=== PATIENT | female | born 1980 | race Hispanic/Latino ===

== ENCOUNTER 2018-10-14 11:42 | Emergency (ER) | payer BC, OTHER ==
[~2018-10-14] VITALS: Ht 162.6 cm; Wt 49.0 kg
--- OUTSIDE RECORDS SUMMARY | 2018-10-14 11:44 | XMS REPORT | Encounter Summary ---
Author Organization Unknown Address [address] [place] [address] Phone [phone] Reason for Visit Medical Complaint Instructions None recorded. Discussion Note: None recorded. Patient educational handouts: No information available. Plan of Care Reminders Provider Appointments None recorded. Lab None recorded. Referral None recorded. Procedures None recorded. Surgeries None recorded. Imaging None recorded. Medications None recorded. Medications Administered None recorded. Vitals None recorded. Lab Results None recorded. Allergies Name Reaction Severity Onset Stadol Problems None recorded. Procedures None recorded. Vaccine List None recorded. Social History Smoking Status Never Smoker Past Encounters 01/28/2016 TAMIKO Covington: [address] [facility] [place] [address], Ph. History of Present Illness None recorded. Review of Systems Reported By: Patient Physical Exam None recorded.
--- OUTSIDE RECORDS SUMMARY | 2018-10-14 11:44 | XMS REPORT | Continuity of Care Document ---
Author Author [facility] Interface Address Unknown Phone Unavailable Problems Problem Status Onset Date Classification Date Reported Comments Source Streptococcal sore throat 04/05/2016 Diagnosis 04/05/2016 [facility] Acute upper respiratory infection 04/05/2016 Diagnosis 04/05/2016 [facility] Streptococcal Sore Throat Problem 04/05/2016 [facility] Acute Upper Respiratory Infection Problem 04/05/2016 [facility] Medications Medication Details Route Status Patient Instructions Ordering Provider Order Date Source Amoxicillin 875 MG Oral Tablet amoxicillin 875 mg tablet Take 1 tablet twice a day by oral route with meals for 10 days. Active [facility] Brompheniramine Maleate 0.4 MG/ML / Dextromethorphan Hydrobromide 2 MG/ML / Pseudoephedrine Hydrochloride 6 MG/ML Oral Solution [Bromfed DM] Bromfed DM 2 mg-30 mg-10 mg/5 mL syrup Take 10 mL every 6 hours by oral route as needed for cough. Active [facility] Allergies, Adverse Reactions, Alerts Substance Category Reaction Severity Reaction type Status Date Reported Comments Source Stadol Allergy to substance 01/28/2016 [facility] Immunizations Immunization Date Given Site Status Last Updated Comments Source Results Order Name Results Value Reference Range Date Interpretation Comments Source Influenza A negative 04/05/2016 [facility] Influenza B negative 04/05/2016 [facility] RESULT positive 04/05/2016 [facility] SWAB LOCATION Left and Right tonsillar pillars 04/05/2016 [facility] Vital Signs Vital Sign Value Date Comments Source Diastolic (mm Hg) 78 04/05/2016 [facility] Height 64 04/05/2016 [facility] Systolic (mm Hg) 110 04/05/2016 [facility] Weight 112 04/05/2016 [facility] Encounters Location Location Details Encounter Type Encounter Number Reason For Visit Attending Provider ADM Date DC Date Status Source [place] - [facility] - [id number] Bates, [employer]: [address] [place] [address], Ph. [phone] [id number] Renae Bates 01/28/2016 [facility] [place] [facility] - [id number] Bates, MARKET DEVELOPMENT TRAINER: [address] [place] [address], Ph. [id number] Renae Bates 01/28/2016 [facility] [place] - [facility] - [id number] Bates, MARKET DEVELOPMENT TRAINER: [address] [place] [address], Ph. [id number] Renae Bates 04/05/2016 [facility] Procedures Procedure Code Date Perfomer Comments Source
--- OUTSIDE RECORDS SUMMARY | 2018-10-14 11:44 | XMS REPORT | Encounter Summary ---
Author Organization Unknown Address [address] [place] [address] Phone [phone] Reason for Visit Medical Complaint Instructions 1. Streptococcal sore throat rapid strep group A, throat amoxicillin 875 mg tablet strep throat: care instructions 2. Acute upper respiratory infection rapid flu (A+B) Bromfed DM 2 mg-30 mg-10 mg/5 mL syrup upper respiratory infection (cold): care instructions Discussion Note: None recorded. Plan of Care Patient Instructions Please drink plenty of fluids, rest, good hand washing, cover your mouth while coughing and sneezing. Try warm salt water gargles, throat lozanges, soups ortea with honey and/or lemon juice to soothe the throat.Take ibuprofen or tylenol every 6 hours as needed for fever and aches. Try flonase nasal spray, 2sprays to each nostril once a day for nasal congestion.Change out your toothbrush tomorrow or when you start to feel better.Please read all the side effects of the medications, if you develop any side effects immediately stop the medication and please contact your PCP/UC/ER or [facility] or call 911. Follow up with PCP/UC/ER or seek care if symptomsget worseor no improvement in 3 to 4 days. Patient verbalizes understanding and agrees to the plan. Reminders Provider Appointments None recorded. Lab Rapid Flu (A+B) 04/05/2016 [facility] Rapid Strep Group a, Throat 04/05/2016 [facility] Referral None recorded. Procedures None recorded. Surgeries None recorded. Imaging None recorded. Medications Name Start Date amoxicillin 875 mg tablet Take 1 tablet twice a day by oral route with meals for 10 days. Bromfed DM 2 mg-30 mg-10 mg/5 mL syrup Take 10 mL every 6 hours by oral route as needed for cough. Medications Administered None recorded. Vitals Height Weight BMI Blood Pressure 5 ft 4 in 112 lbs 19.2 110/78 Lab Results Date Name Result Description Value Range Status Rapid Flu (A+B) Influenza a negative Influenza B negative Rapid Strep Group a, Throat Result positive Swab Location Left and Right tonsillar pillars Allergies Name Reaction Severity Onset Stadol Hallucinations Problems Name Status Onset Date Source Streptococcal Sore Throat Active Encounter Acute Upper Respiratory Infection Active Encounter Procedures None recorded. Vaccine List None recorded. Social History Smoking Status Never Smoker Past Encounters 04/05/2016 Streptococcal Sore Throat; Acute Upper Respiratory Infection Renae Bates, [facility]: [address] [place] [address], Ph. History of Present Illness Vavly-Ectvzscuve-Gxyyxig Reported By: Patient HPI: Location: head/sinuses, throat. Quality: productive cough, sore throat, nasal/sinus congestion, dry cough. Duration: 3days. Severity: moderate. Onset/Timing: sudden. Context: no sick contacts, no foreign travel, non-smoker, allergies. Modifying factors: OTC medication. Associated Symptoms: no sputum production, no shortness of breath, no wheezing, no change in number of pillows needed to sleep at night, no sweats, no significant weight gain, no significant weight loss, no morning cough, no vomiting, no diarrhea, no rash, no nausea, sore throat Notes: Pt also reports body aches and fever. Review of Systems Basic Reported By: Patient Constitutional: Constitutional: fever Eyes: Eyes: no eye complaints Ugrv-Vzae-Cifhi-Throat: Ears: no ear complaints. Nose: nose/sinus problems. Mouth/Throat: no bleeding gums, no mouth complaints, no teeth problems, sore throat Cardiovascular: Cardiovascular: no chest pain, no shortness of breath, no known heart murmur Respiratory: Respiratory: no wheezing, no shortness of breath, cough Gastrointestinal: Gastrointestinal: no abdominal pain, no vomiting / diarrhea Genitourinary: Genitourinary: no urinary complaints, no discharge Musculoskeletal: Musculoskeletal: no muscle weakness, no arthralgias/joint pain, no back pain, muscle aches Skin: Skin: no abnormal / changing mole, no jaundice, no rashes Neurologic: Neurologic: no loss of consciousness, no weakness, no numbness, no seizures, no dizziness, headache Physical Exam Adult Basic, Adult Female Complete Constitutional: General Appearance: healthy-appearing, well-nourished, well-developed. Level of Distress: NAD. Ambulation: ambulating normally Psychiatric: Mental Status: active and alert. Orientation: to time, to place, to person Eyes: Lids and Conjunctivae: non-injected, no discharge, no pallor. Pupils: PERRLA. EOM: EOMI. Lens: clear. Sclerae: non-icteric Nsv-Biic-Ybbrt-Throat: Ears: no lesions on external ear, no outer ear tenderness, EACs clear, TMs clear. Hearing: no hearing loss. Nose: no lesions on external nose, nares patent, no septal deviation, nasal passages clear, no sinus tenderness, nasal discharge--rhinorrhea, post nasal drip. Lips, Teeth, and Gums: no mouth or lip ulcers, no bleeding gums, normal dentition. Oropharynx: moist mucous membranes, erythema, exudates, tonsils enlarged 1+ Neck: Neck: supple. Lymph Nodes: no cervical LAD Lungs: Respiratory effort: no dyspnea, no tachypnea. Auscultation: breath sounds normal Cardiovascular: Heart Auscultation: RRR, no murmurs Neurologic: Gait and Station: normal gait Skin: Inspection and palpation: no rash
--- OUTSIDE RECORDS SUMMARY | 2018-10-14 11:44 | XMS REPORT | Encounter Summary ---
Author Organization Unknown Address [address] [place] [address] Phone [phone] Reason for Visit Medical Complaint Instructions None [...] Smoker Past Encounters 01/28/2016 TAMIKO Covington: [address] [facility] [place] [address], Ph. History of Present Illness None recorded. Review of Systems Reported By: Patient Physical Exam None recorded.
--- NOTE | 2018-10-14 11:50 | NUR ---
HOUSE SUP NOTIFIED OF DOPPLER NEEDED
[2018-10-14 12:25] LABS: AMPHETAMINES SCREEN,URINE NEGATIVE (NEGATIVE); BENZODIAZEPINES SCREEN,URINE NEGATIVE (NEGATIVE); PHENCYCLIDINE SCREEN,URINE NEGATIVE (NEGATIVE)
--- NOTE | 2018-10-14 12:27 | NUR ---
ultrasound here for study
== END 2018-10-14 13:42 | disposition home or self-care (01) ==
LOC: ER 11:42
DX: M79.662 Pain in left lower leg (principal)
CPT/HCPCS: 80307; 93971; 99283

== ENCOUNTER 2019-09-29 19:33 | Emergency (ER) | payer OTHER ==
[~2019-09-29] VITALS: Ht 162.6 cm; Wt 49.0 kg
--- OUTSIDE RECORDS SUMMARY | 2019-09-29 19:35 | XMS REPORT ---
Author Author [facility] Address Unknown Phone Unavailable Care Team Providers Care Joint Terminal Attack Controller Name Role Phone Unavailable Unavailable Payers Payer Name Policy Type Policy Number Effective Date Expiration Date Problems This patient has no known problems. Allergies, Adverse Reactions, Alerts Allergy Name Allergy Type Status Severity Reaction(s) Onset Date Inactive Date Treating Clinician Comments butorphanol tartrate DA Active SV 2014-08-15 00:00:00 fentanyl DA Active MO 2014-08-15 00:00:00 Medications This patient has no known medications. Encounters Start Date/Time End Date/Time Encounter Type Admission Type Attending Clinicians Care Facility Care Department Encounter ID 2018-10-08 01:06:00 2018-10-08 01:06:00 Emergency E [id number] Results Test Description Test Time Test Comments Text Results Atomic Results Result Comments BREAST ULTRASOUND BILATERAL 2018-09-13 09:12:03 - DIAG MAMM BILATERAL MICHELLE CAD DIGITALBILATERAL DIGITAL DIAGNOSTIC MAMMOGRAM 3D/2D WITH CAD: 09/13/2018Digital breast tomosynthesis was performed in addition to routine CC and MLO views. Current mammographic images were evaluated by either a [employer] M- Vu or a [employer] ImageChecker CAD (computer aided detection system). Comparison is made to exam dated 09/18/2012 mammogram - [facility]. The tissue of both breasts is extremely dense, which lowers the sensitivity of mammography. No suspicious mass, architectural distortion, malignant type calcification, or lymph node abnormality detected. INCOMPLETE ASSESSMENT: ADDITIONAL IMAGING EVALUATION RECOMMENDED No mammographic evidence of malignancy. Proceed to same day ultrasound. - BREAST ULTRASOUND BILATERALULTRASOUND OF BOTH BREASTS AND BOTH AXILLA: 09/13/2018Comparison is made to exam dated 09/18/2012 mammogram - [facility]. Color flow, real-time, and Doppler ultrasound of both breasts and both axilla were performed. Doss scale images of the real-time examination were reviewed. No suspicious abnormalities were seen sonographically in either breast or either axilla. Stable left breast cyst and benign-appearing findings on the right.IMPRESSION: BENIGN There is no sonographic evidence of malignancy. Resume annual screening mammography in one year. Jamie eBe M.D. et/:09/13/2018 09:12:03 Entry: laya - 09/17/2018 16:43:28Imaging Technologist: Francesca Galeano FW, [facility]-FWletter sent: BIRADS 1-2 Combo FU Letter Mammogram BI-RADS: 0 Indeterminate Ultrasound BI-RADS: 2 Benign DIAG MAMM BILATERAL MICHELLE CAD DIGITAL 2018-09-13 09:12:03 - DIAG MAMM BILATERAL MICHELLE CAD DIGITALBILATERAL DIGITAL DIAGNOSTIC MAMMOGRAM 3D/2D WITH CAD: 09/13/2018Digital breast tomosynthesis was performed in addition to routine CC and MLO views. Current mammographic images were evaluated by either a [employer] M- Vu or a [employer] ImageChecker CAD (computer aided detection system). Comparison is made to exam dated 09/18/2012 mammogram - [facility]. The tissue of both breasts is extremely dense, which lowers the sensitivity of mammography. No suspicious mass, architectural distortion, malignant type calcification, or lymph node abnormality detected. INCOMPLETE ASSESSMENT: ADDITIONAL IMAGING EVALUATION RECOMMENDED No mammographic evidence of malignancy. Proceed to same day ultrasound. - BREAST ULTRASOUND BILATERALULTRASOUND OF BOTH BREASTS AND BOTH AXILLA: 09/13/2018Comparison is made to exam dated 09/18/2012 mammogram - [facility]. Color flow, real-time, and Doppler ultrasound of both breasts and both axilla were performed. Doss scale images of the real-time examination were reviewed. No suspicious abnormalities were seen sonographically in either breast or either axilla. Stable left breast cyst and benign-appearing findings on the right.IMPRESSION: BENIGN There is no sonographic evidence of malignancy. Resume annual screening mammography in one year. Jamie Bee M.D. et/:09/13/2018 09:12:03 Entry: laya - 09/17/2018 16:43:28Imaging Technologist: Francesca GREEN, [facility]-FWletter sent: BIRADS 1-2 Combo FU Letter Mammogram BI-RADS: 0 Indeterminate Ultrasound BI-RADS: 2 Benign
[2019-09-29] MEDS ORDERED: SODIUM CHLORIDE 0.9% 1000ML 1,000 ML IV STA (19:41)
[2019-09-29] MEDS ORDERED: ASPIRIN 81 MG CHEW TAB PO ONE (20:00)
--- NOTE | 2019-09-29 20:22 | Diagnostic Imaging Report ---
EXAMINATION: Head CT HISTORY: Headache, nausea, hypertension, shortness of breath COMPARISON: None. TECHNIQUE: Helical axial images of the head were obtained. Reformatted coronal and sagittal images from the axial data. Dose modulation, iterative reconstruction, and/or weight based adjustment of the mA/kV was utilized to reduce the radiation dose to as low as reasonably achievable. Image quality: Motion/streaking artifact limits the evaluation of the skull base and posterior cranial fossa. FINDINGS: Parenchyma: 1. No abnormal densities. 2. No mass or hemorrhage. No CT evidence of acute territorial vascular insult. Extra-axial spaces:No abnormal density. No extra-axial fluid collections Brain volume: Normal for age. Ventricles: No hydrocephalus or displacement. Arteries: No density suggestive of thrombus. Dural sinuses: No abnormal density. Foramen magnum: No mass, Chiari malformation, or basilar invagination. Sella: No obvious mass. Paranasal/mastoid sinuses: Imaged portions unremarkable. Skull/Scalp: No lytic or blastic lesions. No fractures. IMPRESSION: Normal head CT, particularly no intracranial hemorrhage. Signed by: Dr. Yuli Mackenzie M.D. on 09/29/2019 8:19 PM
[2019-09-29 20:26] LABS: BASOPHILS # (AUTO) 0.1 (0.0-0.1); BASOPHILS % 0.5 % (0.0-1.0); EOSINOPHILS % 0.3 % (0.0-6.0); HEMATOCRIT 41.5 % (34.2-44.1); LYMPHOCYTES # (AUTO) 1.6 (1.0-3.2); LYMPHOCYTES % 17.1 % (18.0-39.1); MEAN CORPUSCULAR HEMOGLOBIN 29.5 pg (28-32); MEAN CORPUSCULAR HGB CONC 33.7 g/dL (31-35); MEAN CORPUSCULAR VOLUME 87.4 fL (81-99); MONOCYTES # (AUTO) 0.6 (0.2-0.8); MONOCYTES % 6.5 % (4.4-11.3); NEUTROPHILS # (AUTO) 7.1 (2.1-6.9); NEUTROPHILS % 75.3 % (38.7-80.0); PLATELET COUNT 311 x10e3/uL (140-360); RED BLOOD COUNT 4.75 x10e6/uL (3.6-5.1); RED CELL DISTRIBUTION WIDTH 13.2 % (11.7-14.4)
[2019-09-29 20:44] LABS: ALANINE AMINOTRANSFERASE 11 IU/L (0-55); ALBUMIN 4.6 g/dL (3.5-5.0); ALBUMIN/GLOBULIN RATIO 1.2 (0.8-2.0); ALKALINE PHOSPHATASE 52 IU/L (40-150); ANION GAP 14.7 mmol/L (8-16); BLOOD UREA NITROGEN 10 mg/dL (7-26); BUN/CREATININE RATIO 11 (6-25); CALCIUM 9.7 mg/dL (8.4-10.2); CARBON DIOXIDE 22 mmol/L (22-29); CHLORIDE 105 mmol/L (98-107); CREATINE KINASE 47 IU/L (29-168); CREATININE, SERUM 0.87 mg/dL (0.57-1.11); EST GLOMERULAR FILTRATION RATE > 60 ML/MIN (60-); GLUCOSE 94 mg/dL (74-118); POTASSIUM 3.7 mmol/L (3.5-5.1); SODIUM 138 mmol/L (136-145)
--- NOTE | 2019-09-29 20:48 | Diagnostic Imaging Report ---
EXAMINATION: CHEST SINGLE (PORTABLE) INDICATION: ^ERMD ORDER ^[id number] ^2001 ^Y COMPARISON: None FINDINGS: AP view TUBES and LINES: None. LUNGS: Lungs are well inflated. There is no evidence of pneumonia or pulmonary edema. PLEURA: No pleural effusion or pneumothorax. HEART AND MEDIASTINUM: The cardiomediastinal silhouette is unremarkable. BONES AND SOFT TISSUES: No acute osseous lesion. Soft tissues are unremarkable. UPPER ABDOMEN: No free air under the diaphragm. IMPRESSION: No acute thoracic abnormality. Signed by: Dr. Erick Hernandez MD on 09/29/2019 8:45 PM
--- NOTE | 2019-09-29 21:08 | NUR ---
ER MD NOTIFIED AND AWARE OF BILIRUBIN, 2.9. NO NEW ORDERS AT THIS TIME.
== END 2019-09-29 21:48 | disposition home or self-care (01) ==
LOC: ER 19:33
DX: R53.1 Weakness (principal); R06.00 Dyspnea, unspecified; R51 Headache; I10 Essential (primary) hypertension
CPT/HCPCS: 36415; 70450; 71045; 80053; 82550; 82553; 83880; 84484; 85025; 93005; 99283; J7030

== ENCOUNTER 2021-06-22 16:33 | Emergency (ER) | payer BC, OTHER ==
[~2021-06-22] VITALS: Ht 162.6 cm; Wt 49.0 kg
== END 2021-06-22 19:23 | disposition home or self-care (01) ==
LOC: ER 16:58
DX: U07.1 COVID-19 (principal); I10 Essential (primary) hypertension; Z88.6 Allergy status to analgesic agent; Z91.010 Allergy to peanuts; Z91.018 Allergy to other foods
CPT/HCPCS: 71045; 99282

== ENCOUNTER 2022-03-05 13:06 | Emergency (ER) | payer BC ==
[~2022-03-05] VITALS: Ht 162.6 cm; Wt 49.0 kg
[2022-03-05] MEDS ORDERED: SODIUM CHLORIDE 0.9% 1000ML 1,000 ML IV STA (13:26)
[2022-03-05] MEDS ORDERED: ONDANSETRON HCL INJ 2MG/ML 2ML 2 MG/ML VIAL IV PRN (13:30)
[2022-03-05] MEDS ORDERED: DICYCLOMINE HCL 20 MG/2 ML VIAL IM ONE (13:30)
[2022-03-05 13:50] LABS: BASOPHILS # (AUTO) 0.1 (0.0-0.1); BASOPHILS % 0.6 % (0.0-1.0); EOSINOPHILS # (AUTO) 0.2 (0.0-0.4); HEMATOCRIT 38.4 % (34.2-44.1); HEMOGLOBIN 12.5 g/dL (12.0-16.0); LYMPHOCYTES # (AUTO) 2.2 (1.0-3.2); LYMPHOCYTES % 28.3 % (18.0-39.1); MEAN CORPUSCULAR HEMOGLOBIN 29.6 pg (28-32); MEAN CORPUSCULAR HGB CONC 32.6 g/dL (31-35); MEAN CORPUSCULAR VOLUME 90.8 fL (81-99); MONOCYTES # (AUTO) 0.7 (0.2-0.8); MONOCYTES % 8.4 % (4.4-11.3); NEUTROPHILS # (AUTO) 4.8 (2.1-6.9); NEUTROPHILS % 60.6 % (38.7-80.0); PLATELET COUNT 301 x10e3/uL (140-360); RED BLOOD COUNT 4.23 x10e6/uL (3.6-5.1); RED CELL DISTRIBUTION WIDTH 12.8 % (11.7-14.4)
[2022-03-05 13:58] LABS: CLARITY,URINE CLEAR (CLEAR); COLOR,URINE YELLOW (YELLOW); LEUKOCYTE ESTERASE ,URINE NEGATIVE (NEGATIVE); NITRITE,URINE NEGATIVE (NEGATIVE)
[2022-03-05 13:59] LABS: KETONES,URINE NEGATIVE (NEGATIVE); PROTEIN,URINE DIPSTICK NEGATIVE (NEGATIVE); URINE UROBILINOGEN 0.2 mg/dL (0.2 - 1)
[2022-03-05 14:07] LABS: EPITHELIAL CELLS,URINE FEW /LPF; MUCUS,URINE RARE (RARE); RBC,URINE 0-5 /HPF (0-5); WBC,URINE (MAN) 0-5 /HPF (0-5)
[2022-03-05 14:08] LABS: BACTERIA,URINE FEW /HPF
[2022-03-05 14:16] LABS: ALBUMIN 4.2 g/dL (3.5-5.0); ALBUMIN/GLOBULIN RATIO 1.2 (0.8-2.0); ANION GAP 15.9 mmol/L (8-16); CALCIUM 9.2 mg/dL (8.4-10.2); CREATININE, SERUM 0.75 mg/dL (0.57-1.11); POTASSIUM 3.9 mmol/L (3.5-5.1)
[2022-03-05] MEDS ORDERED: IOPAMIDOL 370 MG/ML 100 ML INFUS..BTL INJ ONE (14:58)
== END 2022-03-05 16:29 | disposition home or self-care (01) ==
LOC: ER 13:20
DX: R10.30 Lower abdominal pain, unspecified (principal); I10 Essential (primary) hypertension; F41.9 Anxiety disorder, unspecified
CPT/HCPCS: 36415; 74177; 80053; 81001; 83690; 84702; 85025; 99284; C9113; J7030; Q9967; J0500; J2405

== ENCOUNTER 2023-10-14 20:01 | Emergency (ER) | payer BC ==
[~2023-10-14] VITALS: Ht 162.6 cm; Wt 49.0 kg
[2023-10-14 20:13] VITALS: O2SAT 100
== END 2023-10-14 21:30 | disposition home or self-care (01) ==
LOC: ER 20:10
DX: R51.9 Headache, unspecified (principal); R20.2 Paresthesia of skin; R20.0 Anesthesia of skin; I10 Essential (primary) hypertension; F41.9 Anxiety disorder, unspecified
CPT/HCPCS: 70450; 99283